=== PATIENT | female | born 1980 | race American Indian/Alaskan Native ===

== ENCOUNTER 2020-06-25 01:06 | Emergency (ER) | payer OTHER ==
--- NOTE | 2020-06-25 01:16 | Emergency Department Report ---
ED Shortness of Breath HPI - General Chief Complaint: Dyspnea/Respdistress Stated Complaint: SHORTNESS OF BREATH Time Seen by Provider: 06/25/20 01:13 Source: patient, EMS Mode of arrival: Stretcher Limitations: No Limitations - History of Present Illness Initial Comments: Patient is a 39-year-old female that presents emergency room with complaints of shortness of breath and dyspnea exertion. Patient states that her shortness of breath started approximately 2 hours ago. Patient states he was resting in bed and he was hit with an instrument bout of shortness of breath. Patient states the shortness of breath better with rest and worse with exertion. Patient states that her shortness of breath is worsening. Patient brought in by EMS. Report received from EMS. EMS states the patient was hypoxic at 82% is on 4 L and is currently 92%. Patient states she feels better with oxygen. Patient states she has a past medical history of diabetes, hypertension hyperlipidemia. Patient states she does not take aspirin every day. Patient states she is compliant with her medications. Patient denies recent travel. Patient denies recent international travel. Patient denies exposure to the novel coronavirus. Patient denies sick contacts. Patient denies fever and chills. Patient denies cough. Patient denies diarrhea. Patient denies coming in contact with anybody with symptoms of the novel coronavirus. MD Complaint: shortness of breath -: Sudden Severity: severe Consistency: constant Improves With: rest Worsens With: exertion Treatments Prior to Arrival: oxygen - Related Data Home Oxygen Therapy: No Allergies Allergy/AdvReac Type Severity Reaction Status Date / Time No Known Allergies Allergy Unverified 06/25/20 01:17 ED Review of Systems ROS: Stated complaint: SHORTNESS OF BREATH Other details as noted in HPI Constitutional: denies: chills, fever Eyes: denies: eye pain, eye discharge, vision change ENT: denies: ear pain, throat pain Respiratory: see HPI, shortness of breath, SOB with exertion, SOB at rest. denies: cough, wheezing Cardiovascular: as per HPI, dyspnea on exertion. denies: chest pain, palpit ations Endocrine: no symptoms reported Gastrointestinal: denies: abdominal pain, nausea, diarrhea Genitourinary: denies: urgency, dysuria, discharge Musculoskeletal: denies: back pain, joint swelling, arthralgia Skin: denies: rash, lesions Neurological: denies: headache, weakness, paresthesias Psychiatric: denies: anxiety, depression Hematological/Lymphatic: denies: easy bleeding, easy bruising ED Past Medical Hx - Past Medical History Previous Medical History?: Yes Hx Hypertension: Yes Hx Diabetes: Yes - Surgical History Past Surgical History?: No - Family History Family history: no significant - Social History Smoking Status: Never Smoker Substance Use Type: None ED Physical Exam - General Limitations: No Limitations General appearance: alert, in no apparent distress - Head Head exam: Present: atraumatic, normocephalic - Eye Eye exam: Present: normal appearance - ENT ENT exam: Present: mucous membranes moist - Neck Neck exam: Present: normal inspection - Respiratory Respiratory exam: Present: normal lung sounds bilaterally. Absent: respiratory distress, wheezes, rales - Cardiovascular Cardiovascular Exam: Present: regular rate, normal rhythm. Absent: systolic murmur, diastolic murmur, rubs, gallop - GI/Abdominal GI/Abdominal exam: Present: soft, normal bowel sounds. Absent: distended, tenderness, guarding - Extremities Exam Extremities exam: Present: normal inspection - Back Exam Back exam: Present: normal inspection - Neurological Exam Neurological exam: Present: alert, oriented X3 - Psychiatric Psychiatric exam: Present: normal affect, normal mood - Skin Skin exam: Present: warm, dry, intact, normal color. Absent: rash ED Course Vital Signs 06/25/20 06/25/20 06/25/20 01:12 01:15 01:43 Temperature 98.2 F Pulse Rate 100 H 95 H Respiratory 14 20 18 Rate Blood Pressure 174/96 O2 Sat by Pulse 85 Oximetry 06/25/20 06/25/20 06/25/20 02:01 03:01 04:01 Temperature Pulse Rate 87 88 78 Respiratory 27 H 24 21 Rate Blood Pressure 167/101 142/85 150/78 O2 Sat by Pulse 96 95 96 Oximetry - Reevaluation(s) Reevaluation #1: Patient is oxygen saturation improved. 06/25/20 01:53 Reevaluation #2: Patient be given IV Lasix. 06/25/20 05:10 Reevaluation #3: I discussed all results and clinical findings with patient. I discussed plan of care with patient. Patient agrees with plan of care and transfer. Patient is stable for transfer. 06/25/20 05:24 - Consultations Consultation #1: I discussed case with patient's private insurance, [employer]. Dr. Francis with [facility] the transfer. Dr. Francis states that the accepting physician is Dr. Vazquez at [facility]. 06/25/20 05:23 ED Medical Decision Making - Lab Data Result diagrams: 06/25/20 01:33 06/25/20 01:33 - EKG Data -: EKG Interpreted by Me EKG shows normal: sinus rhythm, axis, intervals, QRS complexes, ST-T waves Rate: normal - Radiology Data Radiology results: report reviewed, image reviewed interpreted by me: Chest x-ray: No pneumonia, no pneumothorax, no foreign body, no osseous findings, pulmonary edema noted CHEST 1 VIEW 06/25/2020 1:00 AM INDICATION / CLINICAL INFORMATION: Dyspnea. COMPARISON: None available. FINDINGS: SUPPORT DEVICES: None. HEART / MEDIASTINUM: No significant abnormality. LUNGS / PLEURA: There are generalized bilateral interstitial opacities. No s ignificant pleural effusion. No pneumothorax. ADDITIONAL FINDINGS: No significant additional findings. IMPRESSION: Suspected pulmonary edema. CTA CHEST WITH IV CONTRAST INDICATION: Shortness of breath. Hypoxia. TECHNIQUE: Axial CT images were obtained through the chest after injection of 100 cc Omnipaque 350 IV contrast. 3 plane MIP reconstructions were produced. All CT scans at this [facility] are performed using CT dose reduction for ALARA by means of automated exposure control. COMPARISON: One view of the chest from earlier today. FINDINGS: PULMONARY ARTERIES: Suboptimal opacification without distinct central emboli. AORTA AND ARTERIES: No significant abnormality. HEART: No significant abnormality. MEDIASTINUM: No significant abnormality. LUNGS: Generalized bilateral groundglass opacities are noted without a suspicious nodule/mass, pneumothorax or pleural effusion. ADDITIONAL FINDINGS: None. UPPER ABDOMEN: No acute findings. BONES: No significant osseous abnormality. IMPRESSION: 1. Suboptimal opacification of the pulmonary arteries without distinct pulmonary emboli. 2. Suspected pulmonary edema versus pneumonia. - Medical Decision Making Patient is a 39-year-old female that presents emergency room with hypoxia and shortness of breath. Patient brought in by EMS. Patient found by EMS to be 80% on room air. Patient placed on 4 L and patient oxygen saturation improved. Patient denies fever or chills. Patient had labs done which were essentially unremarkable for elevated WBC. Patient found to have been normal D-dimer and BNP. Due to the patient's hypoxia and his x-ray, a CTA of the chest was done. CTA was done to rule out PE. Patient's CT scan is negative for acute findings except for pulmonary edema and no PE. I personally reviewed the chest x-ray. Patient's EKG shows a normal sinus rhythm. No ST segment changes. I have personally reviewed the EKG. Patient given IV Lasix. Patient has [employer] insurance. I discussed the case with [facility] and [facility] accepted the patient to be transferred to [facility]. Critical care time documented due to the multiple reassessments, prolonged time at the bedside, interpretation of diagnostics and labs and discussion with receiving facility.. - Differential Diagnosis CHF, PE, pneumonia, SLB, hypoxia Critical Care Time: Yes Critical care time in (mins) excluding proc time.: 35 Critical care attestation.: If time is entered above; I have spent that time in minutes in the direct care of this critically ill patient, excluding procedure time. Critical Care Time: 35 minutes ED Disposition Clinical Impression: SOB (shortness of breath), Pulmonary edema cardiac cause Respiratory failure Qualifiers: Chronicity: acute Respiratory failure complication: hypoxia Qualified Code(s): J96.01 - Acute respiratory failure with hypoxia Disposition: DC/TX-70 ANOTHER TYPE HLTHCARE Is pt being admited?: No Does the pt Need Aspirin: No Condition: Critical Instructions: Pulmonary Edema (ED) Time of Disposition: 05:29
[2020-06-25 01:44] LABS: Basophils # (Auto) 0.1 K/mm3 (0.0-0.1); Basophils % (Auto) 0.7 % (0.0-1.8); Eosinophils # (Auto) 0.1 K/mm3 (0.0-0.4); Eosinophils % (Auto) 0.6 % (0.0-4.3); Hematocrit 35.6 % (30.3-42.9); Hemoglobin 12.2 gm/dl (10.1-14.3); Lymphocytes # (Auto) 2.8 K/mm3 (1.2-5.4); Lymphocytes % (Auto) 22.2 % (13.4-35.0); Mean Corpuscular HGB Conc 34 % (30-34); Mean Corpuscular Volume 93 fl (79-97); Monocytes # (Auto) 0.6 K/mm3 (0.0-0.8); Monocytes % (Auto) 5.1 % (0.0-7.3); Platelet Count 258 K/mm3 (140-440); Red Blood Count 3.81 M/mm3 (3.65-5.03); Red Cell Distribution Width 13.7 % (13.2-15.2)
[2020-06-25 01:53] LABS: INR 0.91 (0.87-1.13)
[2020-06-25 01:54] LABS: Partial Thromboplastin Time 24.9 Sec. (24.2-36.6)
[2020-06-25 02:06] LABS: Alanine Aminotransferase 42 units/L (7-56); Blood Urea Nitrogen 8 mg/dL (7-17); Calcium 8.8 mg/dL (8.4-10.2); Hemolysis Index 8
[2020-06-25 02:09] LABS: BUN/Creatinine Ratio 11
--- NOTE | 2020-06-25 02:15 | XRay Report ---
CHEST 1 VIEW 06/25/2020 1:00 AM INDICATION / CLINICAL INFORMATION: Dyspnea. COMPARISON: None available. FINDINGS: SUPPORT DEVICES: None. HEART / MEDIASTINUM: No significant abnormality. LUNGS / PLEURA: There are generalized bilateral interstitial opacities. No significant pleural effusi on. No pneumothorax. ADDITIONAL FINDINGS: No significant additional findings. IMPRESSION: Suspected pulmonary edema. Signer Name: Jeff Gilman MD Signed: 06/25/2020 2:11 AM Workstation Name: [id number]
--- NOTE | 2020-06-25 04:46 | Cat Scan Report ---
CTA CHEST WITH IV CONTRAST INDICATION: Shortness of breath. Hypoxia. TECHNIQUE: Axial CT images were obtained through the chest after injection of 100 cc Omnipaque 350 IV contrast. 3 plane MIP reconstructions were produced. All CT scans at this location are performed using CT dose reduction for ALARA by means of automated exposure control. COMPARISON: One view of the chest from earlier today. FINDINGS: PULMONARY ARTERIES: Suboptimal opacification without distinct central emboli. AORTA AND ARTERIES: No significant abnormality. HEART: No significant abnormality. MEDIASTINUM: No significant abnormality. LUNGS: Generalized bilateral groundglass opacities are noted without a suspicious nodule/mass, pneumo thorax or pleural effusion. ADDITIONAL FINDINGS: None. UPPER ABDOMEN: No acute findings. BONES: No significant osseous abnormality. IMPRESSION: 1. Suboptimal opacification of the pulmonary arteries without distinct pulmonary emboli. 2. Suspected pulmonary edema versus pneumonia. Signer Name: Jeff Gilman MD Signed: 06/25/2020 4:42 AM Workstation Name: [id number]
[2020-06-25] MEDS ORDERED: FUROSEMIDE 40 MG/4 ML INJ IV ONE (05:20)
[2020-06-25] MEDS ORDERED: HYDROmorphone 1 MG/1 ML INJ IV ONE (09:15)
[2020-06-25] MEDS ORDERED: HYDROmorphone 1 MG/1 ML INJ ONE (09:20)
[2020-06-25 10:03] VITALS: BP 166/124
--- NOTE | 2020-06-25 10:56 | Electrocardiograph Report ---
[facility], [place] Test Date: 2020-06-25 Test Time: 01:24:06 Pat Name: CARLITOS EL Department: Room: Gender: F Retail Maintenance Technician: AI : [id number] Requested By: FELIPE SANON III Order Number: [id number] Reading MD: Burke Hidalgo Measurements Intervals [place] Rate: 90 P: 50 [place]: 162 QRS: 45 QRSD: 91 T: 40 QT: 373 QTc: 458 Interpretive Statements Sinus rhythm No previous ECG available for comparison Electronically Signed On 06-25-2020 10:55:41 EDT by Burke Hidalgo
== END 2020-06-25 09:05 | disposition other institution (70) ==
LOC: ED 01:06
DX: J96.90 Respiratory failure, unspecified, unspecified whether with hypoxia or hypercapnia (principal); J81.1 Chronic pulmonary edema; I10 Essential (primary) hypertension; E11.9 Type 2 diabetes mellitus without complications; Z98.890 Other specified postprocedural states; Z79.899 Other long term (current) drug therapy
CPT/HCPCS: 36415; 71045; 71275; 80053; 83880; 84484; 84703; 85025; 85379; 85610; 85730; 93005; 96374; 99291; J1940; Q9967; J1170